=== PATIENT | female | born 1990 | race Caucasian/White ===

== ENCOUNTER 2016-09-01 16:41 | Emergency (ER) | payer OTHER ==
[~2016-09-01] VITALS: Ht 160 cm; Wt 68.0 kg
[2016-09-01 16:56] VITALS: Ht 160 cm; Wt 68.0 kg
[2016-09-01] MEDS ORDERED: ONDANSETRON (ODT) 4 MG TAB ODT STA (17:23)
[2016-09-01] MEDS ORDERED: MECLIZINE 12.5 MG TAB PO STA (17:23)
[2016-09-01] MEDS ORDERED: ONDA4TAB14 PO (17:27)
[2016-09-01] MEDS ORDERED: MECL-77 PO (17:27)
--- NOTE | 2016-09-01 17:39 | ERD ---
ER Documentation Chief Complaint Date/Time DATE: 09/01/16 TIME: 17:37 Chief Complaint dizziness and vomiting x 4 days HPI This is a 26-year-old female presenting to the emergency department complaining of episodes of dizziness, nausea and vomiting in the past 4 days. Patient describes the dizziness as if the room is spinning. Patient states that when she gets the dizziness, she feels nauseous and she has had a couple episodes of vomiting. Patient admits to having a mild occipital headache. She denies any hearing loss, tinnitus, ear pain. Denies fever. Denies any other neurological deficits. Patient states that she has not tried any medications for this. ROS All systems reviewed and are negative except as per history of present illness. Medications Home Meds Active Scripts Ondansetron (Ondansetron Odt) 4 Mg Tab.rapdis, 4 MG PO Q6H Y for NAUSEA AND/OR VOMITING, #20 TAB Prov:HAILEY MCWILLIAMS PA-C 09/01/16 Meclizine Hcl* (Meclizine Hcl*) 25 Mg Tablet, 25 MG PO Q8H Y for DIZZINESS, #30 TAB Prov:HAILEY MCWILLIAMS PA-C 09/01/16 Allergies Allergies: Coded Allergies: No Known Allergy (Unverified , 09/01/16) PMhx/Soc History of Surgery: Yes (hysterectomy) Hx Alcohol Use: No Hx Substance Use: No Hx Tobacco Use: No Smoking Status: Never smoker Physical Exam Vitals Vital Signs Date Time Temp Pulse Resp B/P Pulse Ox O2 Delivery O2 Flow Rate FiO2 09/01/16 16:56 98.8 74 18 115/71 100 Physical Exam GENERAL: well-developed/well-nourished, in no apparent distress, non-toxic appearing HENT: NC/AT, bilateral tympanic membrane is normal with good cone of light, nares patent, oropharynx clear without exudates EYES: Conjunctiva normal, PERRLA, EOMI, no nystagmus noted NECK: Supple, no lymphadenopathy PULM: CTA bilaterally, no rales, rhonchi, or wheezing heard CV: Normal S1S2, RRR, good capillary refill GI: Soft, non-distended, normal bowel sounds, non-tender BACK: No midline tenderness, no masses, No CVAT EXT: No clubbing, cyanosis, or edema NEURO: Alert and orientated to person, place, and time. CN II-IIX intact. Gait and coordination were normal. Hand helmet hat puncher strength were equal and within normal limits Patient had dizziness when she turned to the right SKIN: Intact, normal turgor PSYCH: Normal mood and mentation, patient denied SI Results 24 hrs Laboratory Tests Test 09/01/16 17:52 Bedside Urine pH (LAB) 6.0 Bedside Urine Protein (LAB) Negative Bedside Urine Glucose (UA) Negative Bedside Urine Ketones (LAB) Negative Bedside Urine Blood Negative Bedside Urine Nitrite (LAB) Positive Bedside Urine Leukocyte Esterase (L Trace Current Medications Medications (Trade) Dose Ordered Sig/Yeni Route PRN Reason Start Time Stop Time Status Last Admin Dose Admin Meclizine HCl (Antivert) 25 mg ONCE STAT PO 09/01/16 17:23 09/01/16 17:25 DC 09/01/16 17:45 Ondansetron HCl (Zofran Odt) 8 mg ONCE STAT ODT 09/01/16 17:23 09/01/16 17:25 DC 09/01/16 17:46 Procedures/MDM MDM: 26-year-old female presents to the ER with vertigo. My clinical suspicion for benign paroxysmal positional vertigo is high due to physical examination. Symptoms were reproduced with movement of head to the right side. My other differentials include but not limited to include labyrinthitis, vestibular neuritis, Mnire's disease, acoustic neuroma, otitis media and central causes such as vestibular migraine, brainstem ischemia, and multiple sclerosis. Patient did not have neurological symptoms, headaches, tinnitus or hearing loss. I do not think a CT scan is necessary at this time, as I believe the risks outweigh the benefits since symptoms are most consistent with benign positional vertigo. However, I have given strict precautions to return to the ER if condition is not improving as expected or if condition worsens. In the ED, patient was given Antivert 25mg and Zofran 8mg ODT. DISPOSITION: hemodynamically stable to be discharged home. I have discussed the pathology of the condition. Prescriptions Antivert and Zofran have been given. I have discussed to see a primary care physician for follow-up examination and management. Discussed to return to the ER if condition worsens or not improves as expected. Patient expressed that they agreed and understood this plan. Departure Diagnosis: Primary Impression: Vertigo Condition: Stable Patient Instructions: Inner Ear Problems: Causes of Dizziness (Vertigo), Vertigo, Unspecified Ref[facility]: [facility] Usted se clark hecho un examen mdico de control que le indica que no est en pita condicin que requiera tratamiento urgente en el Departamento de Emergencia. Un estudio ms profundo y el tratamiento de case condicin pueden esperar sin ningn riesgo hasta que usted sea atendida/o en el consultorio de case mdico o pita cl shabbir. Es responsabilidad suya arreglar pita sameer para el seguimiento del paresh. MANEJO DE CONDICIONES NO URGENTES EN EL FUTURO 1) Si usted tiene un mdico de atencin primaria: Usted debera llamar a case mdico de atencin primaria antes de venir al departamento de emergencia. Despus de las horas de consultorio, case doctor o case asociado/a est disponible por telfono. El mdico o enfermero de karen en el servicio telefnico puede asesorarle por dayanna medio para atender el problema, o paresh contrario se puede programar pita sameer. 2) Si usted no tiene un mdico de atencin primaria: Llame al mdico o clnica de referencia que aparece abajo bo las horas de consultorio para hacer pita asmeer para que le vean. CLINICAS: [facility] [id number] [facility] [phone] [id number] [facility] [phone] [facility] [facility] [phone] [address]. [facility] [phone] [address] [facility] [phone] [address] Additional Instructions: por favor, seguimiento con case mdico de atencin primaria maana. Puede que necesite pita remisin a un neurlogo [place] toda la medicina silas y ángel se le indic. Regrese a estas instalaciones si no se mejora ángel esperbamos o ángel le dijimos. Visite a case mdico maana para un EXAMEN.Regrese a estas instalaciones si no se mejora ángel esperbamos o ángel le dijimos. HAILEY MCWILLIAMS. WARNER Sep 01, 2016 17:39
[2016-09-01 17:48] LABS: URINE BLOOD (Dip) POC Negative (NEGATIVE)
== END 2016-09-01 18:43 | disposition home or self-care (01) ==
LOC: FTE 16:41
DX: R42 Dizziness and giddiness (principal); R11.2 Nausea with vomiting, unspecified
CPT/HCPCS: 81003; Z7610; 99283